=== PATIENT | male | born 1965 | race African-American/Black ===

== ENCOUNTER → 2021-06-17 | Outpatient (CLI) | payer MEDICARE ==
--- NOTE | 2021-06-18 10:40 | KCIC ---
Examination: 3 views of the cervical spine, 2 views of the thoracolumbar spine and 5 views of the lum bar spine HISTORY: History of multiple myeloma, fall COMPARISON: None available FINDINGS: There is cortical step-off identified in the posterior arch of C1 vertebra, likely a fractu re. The facets are well aligned. The cervical vertebral body heights are maintained. Upper thoracic a neurysm thoracic vertebrae are not imaged. The lower thoracic vertebral bodies, lumbar vertebral body heights are maintained. Moderate degenerative changes cervical, thoracic and lumbar spine. IMPRESSION: 1. Suspected fracture of the posterior arch of C1 vertebra. Recommend CT cervical spine. 2. Moderate degenerative changes cervical, thoracic and lumbar spine. Report was called to on-call physician , at time of dictation. Electronically signed by: Luis Ash MD (06/18/2021 10:38 AM) [id number]
== END ==
LOC: KCIC 14:14
PROVIDERS: ATTEND Family Medicine
DX: C90.00 Multiple myeloma not having achieved remission (principal); M47.813 Spondylosis without myelopathy or radiculopathy, cervicothoracic region; M47.816 Spondylosis without myelopathy or radiculopathy, lumbar region
CPT/HCPCS: 72040; 72080; 72110